=== PATIENT | female | born 1930 | race Caucasian/White ===

== ENCOUNTER 2017-03-30 11:45 | Inpatient (IN) | payer MEDICARE, BC ==
[2017-03-30 12:36] LABS: ABS Basophils 0 10^3/ul (0-0.2); ABS Eosinophils 0.1 10^3/ul (0-0.6); ABS Lymphocytes 1.8 10^3/ul (1.0-4.8); ABS Monocytes 0.5 10^3/ul (0-0.8); ABS Neutrophils 4.1 10^3/ul (1.5-7.7); ABS Nucleated RBC 0 10^3/ul; Eosinophil % 1.1 % (0-6); Hematocrit 36 % (35-47); Hemoglobin 11.9 g/dl (12.0-16.0); Lymphocyte % 27.8 % (25-47); Mean Corpuscular HGB Conc 33 g/dl (31-36); Mean Corpuscular Hemoglobin 30 pg (27-31); Mean Corpuscular Volume 91 fL (80-97); Mean Platelet Volume 9 um3 (7.4-10.4); Nucleated Red Blood Cells % 0; Platelet Count 144 10^3/ul (150-450); Red Blood Count 3.99 10^6/ul (4.0-5.4); Red Cell Distribution Width 16 % (10.5-15); White Blood Count 6.5 10^3/ul (3.5-10.8)
--- NOTE | 2017-03-30 12:50 | RAD ---
HISTORY: Chest pain, weakness COMPARISONS: December 03, 2016 VIEWS: 1: frontal portable view of the chest at 12:35 PM FINDINGS: LINES AND TUBES: None. CARDIOMEDIASTINAL SILHOUETTE: The cardiomediastinal silhouette is normal for portable technique. PLEURA: The costophrenic angles are sharp. No pleural abnormalities are noted. LUNG PARENCHYMA: The lungs are clear. ABDOMEN: The upper abdomen is clear. There is no subphrenic gas. BONES AND SOFT TISSUES: No bone or soft tissue abnormalities are noted. IMPRESSION: NO ACTIVE CARDIOPULMONARY DISEASE.
[2017-03-30 12:51] LABS: INR 3.16 (0.77-1.02)
[2017-03-30 12:54] LABS: EGFR Non-African American 61.4 (>60)
--- NOTE | 2017-03-30 13:30 | ED ---
Armando Rosales Tecjoon, scribed for Maxi Kenny MD on 03/30/17 at 1209 . Complex/Multi-Sys Presentation - HPI Summary HPI Summary: This patient is a 86 year old female BIBA to [facility] with a concerns of general weakness since earlier this morning. EMS states that the patient has a very slow heartrate (30s). Patient was sent by [facility]. Patient states that she doesnt know why shes here and that she wants to go home. Patient denies SOB, chest pain, chest pressure. HPI Limited due to Level 5 Caveat: Dementia - History Of Current Complaint Chief Complaint: EDDysrhythmPalp Time Seen by Provider: 03/30/17 11:56 Hx Obtained From: Patient Hx From Patient Unobtainable Due To: Dementia Onset/Duration: Lasting Hours, Still Present Timing: Constant Aggravating Factor(s): nothing Alleviating Factor(s): nothing Associated Signs And Symptoms: Positive: Other - NEGATIVE:SOB, chest pain, chest pressure - Allergies/Home Medications Allergies/Adverse Reactions: Allergies Allergy/AdvReac Type Severity Reaction Status Date / Time Chocolate Allergy Unknown Unknown Verified 07/19/15 03:20 Reaction Details Clarithromycin [From Biaxin] Allergy Unknown Unknown Verified 07/19/15 03:20 Reaction Details Levofloxacin [From Levaquin] Allergy Unknown Unknown Verified 07/19/15 03:20 Reaction Details Nabumetone Allergy Unknown Unknown Verified 07/19/15 03:20 Reaction Details Penicillins [PCN] Allergy Unknown Unknown Verified 07/19/15 03:20 Reaction Details Rofecoxib Allergy Unknown Unknown Verified 07/19/15 03:20 Reaction Details Shellfish Allergy Allergy Unknown Unknown Verified 07/19/15 03:20 Reaction Details Clindamycin AdvReac Unknown Unknown Verified 07/19/15 03:20 Reaction Details Home Medications: Home Medications Ergocalciferol [Ergocal] 5,000 unit PO WEEKLY 03/30/17 [History Confirmed ] Levothyroxine TAB* [Synthroid TAB*] 50 mcg PO QAM 03/30/17 [History Confirmed ] Magnesium Hydroxide LIQ* [Milk of Magnesia LIQ*] 30 ml PO BEDTIME PRN 03/30/17 [ History Confirmed 03/30/17] Potassium Chlor TAB* [Klor Con ER TAB*] 20 meq PO TID 03/30/17 [History Confirmed 03/30/17] PMH/Surg Hx/FS Hx/Imm Hx Previously Healthy: No - PMHx limited due to Level 5 Caveat: Dementia Endocrine/Hematology History: Reports: Hx Anticoagulant Therapy Denies: Hx Diabetes, Hx Thyroid Disease Cardiovascular History: Reports: Hx Atrial Fibrillation, Hx Coronary Artery Disease, Hx Hypercholesterolemia, Hx Hypertension, Other Cardiovascular Problems /Disorders - AFIB Denies: Hx Pacemaker/ICD Respiratory History: Reports: Hx Asthma, Hx Chronic Obstructive Pulmonary Disease (COPD), Hx Seasonal Allergies, Hx Sleep Apnea History: Denies: Hx Renal Disease Musculoskeletal History: Reports: Hx Arthritis, Other Musculoskeletal History - morbid obesity Sensory History: Reports: Hx Contacts or Glasses, Hx Macular Degeneration, Hx Hearing Problem Opthamlomology History: Reports: Hx Contacts or Glasses, Hx Macular Degeneration Neurological History: Reports: Hx Dementia Denies: Hx Seizures Comment Only: Other Neuro Impairments/Disorders - short term memory loss Psychiatric History: Reports: Hx Anxiety Denies: Hx Substance Abuse - Surgical History Surgery Procedure, Year, and Place: right total knee. hysterectomy Infectious Disease History: No Infectious Disease History: Denies: Hx Hepatitis, Hx Human Immunodeficiency Virus (HIV), History Other Infectious Disease, Traveled Outside the [place] in Last 30 Days - Family History Family History: R & n/C. FHx limited due to Level 5 Caveat: Dementia - Social History Alcohol Use: None Hx Substance Use: No Substance Use Type: Reports: None Hx Tobacco Use: No Smoking Status (MU): Never Smoked Tobacco Review of Systems Negative: Fever Cardiovascular: Negative - chest pressure Negative: Chest Pain Negative: Shortness Of Breath Positive: Weakness All Other Systems Reviewed And Are Negative: No - Comments Additional Review of Systems Comments: ROS limited due to Level 5 Caveat: Dementia Physical Exam Triage Information Reviewed: Yes Vital Signs On Initial Exam: Initial Vitals Temp Pulse Resp BP Pulse Ox 97.1 F 31 18 165/45 97 03/30/17 11:50 03/30/17 11:50 03/30/17 11:50 03/30/17 11:50 03/30/17 11:50 Vital Signs Reviewed: Yes Appearance: Positive: Well-Appearing, No Pain Distress Skin: Positive: Warm, Skin Color Reflects Adequate Perfusion Eyes: Positive: EOMI ENT: Positive: Pharynx normal Neck: Positive: Supple Respiratory/Lung Sounds: Positive: Clear to Auscultation, Breath Sounds Present Cardiovascular: Positive: RRR. Negative: Murmur Abdomen Description: Positive: Nontender Neurological: Positive: Sensory/Motor Intact, CN Intact II-III. Negative: Alert , Oriented to Person Place, Time - to person only Psychiatric: Positive: Other - demented - [place] Coma Scale Best Eye Response: 4 - Spontaneous Best Motor Response: 6 - Obeys Commands Best Verbal Response: 4 - Confused - baseline Diagnostics - Vital Signs Vital Signs Temp Pulse Resp BP Pulse Ox 03/30/17 11:50 97.1 F 31 18 165/45 97 - Laboratory Result Diagrams: 03/30/17 12:20 03/30/17 12:20 Lab Statement: Any lab studies that have been ordered have been reviewed, and results considered in the medical decision making process. - Radiology CXR Xray Interpretation: No Acute Changes - IMPRESSION: NO ACTIVE CARDIOPULMONARY DISEASE. ED physician has reviewed this radiology report. Radiology Interpretation Completed By: Radiologist Complex Multi-Symp Course/Dx Course Of Treatment: 86 yr old with generalized weakness, and bradycardia. Dig level is OK. Admit to hospitalists. hold cardizem likely course at this point. - Diagnoses Provider Diagnoses: Sinus bradycardia, Weakness - Critical Care Time Critical Care Time: 30-74 min Discharge - Discharge Plan Condition: Good Disposition: ADMITTED TO [facility] Referrals: Chele Rowan MD [Primary Care Provider] - The documentation as recorded by the Armando santoyo Tecjoon accurately reflects the service I personally performed and the decisions made by , Maxi Kenny MD.
[2017-03-30] MEDS ORDERED: Magnesium Hydroxide LIQ* 30 ML UDC PO PRN (14:50)
[2017-03-30] MEDS ORDERED: Acetaminophen TAB* 325 MG PO PRN (14:50)
[2017-03-30] MEDS ORDERED: Warfarin TAB(*) 3 MG PO SCH (17:00)
[2017-03-30 17:02] LABS: Urine Appearance Clear; Urine Blood Negative (Negative); Urine Color Yellow; Urine Ketones Negative (Negative); Urine Protein Negative (Negative); Urine Specific Gravity 1.015 (1.010-1.030); Urine Urobilinogen Negative (Negative)
--- NOTE | 2017-03-30 19:36 | HP ---
CC: Dr. García; Dr. Rowan * HISTORY AND PHYSICAL: DATE OF ADMISSION: 03/30/17 PRIMARY CARE PROVIDER: Chele Rowan MD [address] LANDSCAPE ARCHITECT: Dr. García. CHIEF COMPLAINT: The patient has no complaints. HISTORY OF PRESENT ILLNESS: Marilou Rincon is an 86-year-old female who was brought in from [facility] with apparently complaints of not feeling well. The patient herself stated that she feels well and she wants to go home. She was noted to have heart rate in the 30s. She has history paroxysmal atrial fibrillation and she had been kept in sinus rhythm with the help of amiodarone, digoxin and Cardizem. According to the medical records, her last cardioversion was in the year of 2014. According to the medical records from Dr. García's office, the patient was seen by Dr. García's physician geriatric assistant, Dawna De Guzman, in November 2016, at which point she was noted to have new left bundle branch block, but the family was not interested in further evaluation. The patient currently has [id number] dementia. She is very confused and disoriented and asks about her who her many years ago. After discussion with the patient's son and healthcare proxy, Jigar, they requested for the patient to be placed on overnight observation and to further monitor the patient's heart rate. That is despite the patient's MOLST form that was to be "comfort care." PAST MEDICAL HISTORY: 1. History of obstructive sleep apnea. 2. History of paroxysmal atrial fibrillation. 3. Last cardioversion in 2014. 4. Obesity. 5. Hypertension. 6. Asthma. 7. Dyslipidemia. 8. Dementia. 9. History of left bundle-branch block on EKG noted in November 2016. MEDICATIONS: Include: 1. Amiodarone 100 mg daily. 2. Klor-Con 20 mEq 3 times a day. 3. Mag ox 400 mg daily. 4. Diltiazem ER 240 mg daily. 5. Multivitamin 1 tablet daily. 6. Coumadin 4 mg on Sundays, Tuesdays, , and Saturdays; and 3 mg on Mondays, Wednesdays, and Fridays. 7. Aricept 10 mg at bedtime. 8. BuSpar 50 mg b.i.d. 9. Lactobacillus 1 tablet b.i.d. 10. Colace 100 mg daily. 11. Digoxin 0.125 mg daily. 12. Omeprazole 20 mg daily. 13. Namenda 10 mg daily. 14. Hydrochlorothiazide 12.5 mg daily. 15. Levothyroxine 50 mcg daily. ALLERGIES: Include CHOCOLATE, CLARITHROMYCIN, LEVOFLOXACIN, NABUMETONE, SHELLFISH, ROFECOXIB, PENICILLIN, CLINDAMYCIN. The patient could not confirm the reaction to the medications. FAMILY HISTORY: Unobtainable from the patient with severe dementia. SOCIAL HISTORY: Once again, the patient is not a reliable historian. From past medical records, the patient has no history of tobacco, alcohol or drug use. She lives in assisted living facility which is [facility] [place]. Her healthcare proxy is her son, Jigar. The patient had been for many years now. REVIEW OF SYSTEMS: The patient stated that she feels "well." She requests to go home. She denies any chest pain or shortness of breath. She denies any pain. All the remaining 12 systems were reviewed with the patient with significant dementia, she is not a reliable historian and were otherwise negative. PHYSICAL EXAMINATION GENERAL: The patient is a very pleasant 86-year-old female, who is oriented to her name and date of , disoriented to time and location. The patient is in no acute distress. VITAL SIGNS: Blood pressure of 136/111, heart rate of 75 and regular, respiratory rate 12, oxygen saturation 95% on room air, temperature of 97.1. HEENT: Head: Atraumatic and normocephalic. Eyes: Pupils are equal and reactive to light and accommodation. Oropharynx clear. Mucosa moist. NECK: Supple. No JVD. No bruits bilaterally. RESPIRATORY: Clear to auscultation bilaterally. CARDIOVASCULAR: Regular rate and rhythm. Bradycardia. No murmur. ABDOMEN: Soft, nontender. Bowel sounds present in all 4 quadrants. EXTREMITIES: There is +1 nonpitting pedal edema bilaterally. Pulses +2 bilaterally. There is no clubbing or cyanosis. NEURO: Speech clear. Cranial nerves II through XII grossly intact. Motor strength is 5/5 bilaterally. LABORATORY DATA: Shows digoxin level of 0.9. White blood cell count of 6.5, hemoglobin 11.9, hematocrit 36, and platelets of 144,000. Sodium was 135, potassium was 4.7, chloride 103, carbon dioxide 26, BUN 19, creatinine 0.87. Liver function tests were unremarkable. TSH was 3.04. Troponin of 0. IMAGING: The patient's EKG showed sinus bradycardia with heart rate of 31 beats per minute, right bundle-branch block. The patient's portable chest x-ray was read by the radiologist as "no active cardiopulmonary disease. No infiltration." ASSESSMENT AND PLAN: 1. In regards to the patient's sinus bradycardia. The patient is on multiple rate controlling agents. I discussed the case with Dr. García ,we decided that we are going to continue the patient's amiodarone since the patient has a history of symptomatic atrial fibrillation and cardioversion for it. We will discontinue her Cardizem and digoxin. The patient is going to be placed on telemetry monitored bed. I will follow up troponin in the morning. Her lytes appear to be fine today and her TSH is also not abnormal. So far, apart from this, the patient is on rate controlling agents. There are no other factors that could precipitate the patient's bradycardia that were noted. 2. For the patient's advanced dementia, Aricept and Namenda is going to be continued. 3. For the patient's history of paroxysmal atrial fibrillation, the patient is going to be continued with Coumadin with an INR of 3 today, which is going to be continued. INR is going to be checked in the morning. 4. The patient's code status is do not resuscitate, do not intubate and comfort measures only, but also to be okay to send to the hospital. The patient 's son, Jigar, requests for the MOLST wishes to be continued, but he also requests for the patient to be monitored in the hospital while her medications are adjusted. TIME SPENT: Approximately 70 minutes was spent on admission of this patient, more than half that time was spent [id number] with the patient during the interview and physical exam and management of the patient's case. [id number]/[facility] #: [id number] MTDD
[2017-03-30] MEDS: busPIRone TAB* 15 MG PO SCH (20:07)
[2017-03-30] MEDS: Donepezil TAB* 5 MG PO SCH (20:12)
[2017-03-31] MEDS: Levothyroxine TAB* 50 MCG TAB PO SCH (04:29)
[2017-03-31 05:56] LABS: INR 3.2 (0.77-1.02)
[2017-03-31] MEDS: busPIRone TAB* 15 MG PO SCH ×2 (08:35→22:10)
[2017-03-31] MEDS: Omeprazole CAP* 20 MG PO SCH (08:36)
[2017-03-31] MEDS: Docusate CAP* 100 MG PO SCH (08:36)
[2017-03-31] MEDS: Hydrochlorothiazide TAB* 25 MG PO SCH (08:37)
[2017-03-31] MEDS: Magnesium Oxide TAB* 400 MG PO SCH (08:37)
[2017-03-31] MEDS: Memantine TAB* 10 MG PO SCH (08:37)
[2017-03-31] MEDS ORDERED: Amiodarone TAB* 200 MG PO SCH (09:00)
--- NOTE | 2017-03-31 12:51 | PN ---
Subjective Date of Service: 03/31/17 Interval History: Pt is pleasantly confused, no complaints Objective Active Medications: Acetaminophen (Tylenol Tab*) 650 mg PO Q4H PRN PRN Reason: PAIN Buspirone HCl (Buspar Tab *) 15 mg PO BID [facility] Last Admin: 03/31/17 08:35 Dose: 15 mg Docusate Sodium (Colace Cap*) 100 mg PO DAILY [facility] Last Admin: 03/31/17 08:36 Dose: 100 mg Donepezil HCl (Aricept Tab*) 10 mg PO BEDTIME [facility] Last Admin: 03/30/17 20:12 Dose: 10 mg Hydrochlorothiazide (Hydrodiuril Tab*) 12.5 mg PO DAILY [facility] Last Admin: 03/31/17 08:37 Dose: 12.5 mg Levothyroxine Sodium (Synthroid Tab*) 50 mcg PO DAILY@0600 [facility] Last Admin: 03/31/17 04:29 Dose: 50 mcg Magnesium Hydroxide (Milk Of Magnesia Liq*) 30 ml PO BEDTIME PRN PRN Reason: CONSTIPATION Magnesium Oxide (Magox 400 Tab*) 400 mg PO DAILY [facility] Last Admin: 03/31/17 08:37 Dose: 400 mg Memantine (Namenda Tab*) 10 mg PO DAILY [facility] Last Admin: 03/31/17 08:37 Dose: 10 mg Omeprazole (Prilosec Cap*) 20 mg PO DAILY [facility] Last Admin: 03/31/17 08:36 Dose: 20 mg Vital Signs - 8 hr 03/31/17 11:58 Temperature 97.7 F Pulse Rate 33 Respiratory 14 Rate Blood Pressure 127/37 (mmHg) O2 Sat by Pulse 99 Oximetry Oxygen Devices in Use Now: None Appearance: 86 yo f oriented to self only, in nAD, keeps on trying to undress herself and then puts her shirt back on Eyes: No Scleral Icterus, PERRLA Ears/Nose/Mouth/Throat: NL Teeth, Lips, Gums, Mucous Membranes Moist Neck: NL Appearance and Movements; NL JVP, Trachea Midline Respiratory: Symmetrical Chest Expansion and Respiratory Effort Cardiovascular: NL Sounds; No Murmurs; No JVD, - - bradycardia Lymphatic: No Cervical Adenopathy Extremities: No Clubbing, Cyanosis, - - +1 nonpitting pedal edema Skin: No Rash or Ulcers, No Nodules or Sclerosis Neurological: NL Muscle Strength and Tone Result Diagrams: 03/30/17 12:20 03/30/17 12:20 Assess/Plan/Problems-Billing Assessment: 86 yo F with h/o A. fib and dementia sent in from assisted living facility with HR of 30, pt appears to be asymptomatic - Patient Problems (1) Bradycardia Comment: Pt appears to be in a complete heart block. asymptomatic. Amiodarone/digoxin and Cardizem stopped, cont to monitor on telem (2) Dementia Comment: cont namenda/Aricept (3) HTN (hypertension) Comment: controlled, cont HCTZ (4) DVT prophylaxis Comment: INR therapeutic, coumadin held in case pt needed to be considered for a procedure. (5) Hypothyroidism Comment: cont current synthroid, TSH 3.04 Status and Disposition: OBV changed to inpatient
[2017-03-31] MEDS: LORazepam TAB(*) 0.5 MG PO PRN (15:16)
[2017-03-31] MEDS ORDERED: Warfarin TAB(*) 4 MG PO SCH (17:00)
[2017-03-31] MEDS: Donepezil TAB* 5 MG PO SCH (22:10)
[2017-04-01] MEDS: Levothyroxine TAB* 50 MCG TAB PO SCH (06:00)
[2017-04-01] MEDS: Magnesium Oxide TAB* 400 MG PO SCH (08:36)
[2017-04-01] MEDS: Docusate CAP* 100 MG PO SCH (08:36)
[2017-04-01] MEDS: Hydrochlorothiazide TAB* 25 MG PO SCH (08:36)
[2017-04-01] MEDS: Omeprazole CAP* 20 MG PO SCH (08:36)
[2017-04-01] MEDS: Memantine TAB* 10 MG PO SCH (08:36)
[2017-04-01] MEDS: busPIRone TAB* 15 MG PO SCH ×2 (09:10→21:28)
--- NOTE | 2017-04-01 14:51 | PN ---
Subjective Date of Service: 04/01/17 Interval History: Pt feels fine and excited to go home probably tomorrow. HR still in 30's Objective Active Medications: Acetaminophen (Tylenol Tab*) 650 mg PO Q4H PRN PRN Reason: PAIN Buspirone HCl (Buspar Tab *) 15 mg PO BID [facility] Last Admin: 04/01/17 09:10 Dose: 15 mg Docusate Sodium (Colace Cap*) 100 mg PO DAILY [facility] Last Admin: 04/01/17 08:36 Dose: 100 mg Donepezil HCl (Aricept Tab*) 10 mg PO BEDTIME [facility] Last Admin: 03/31/17 22:10 Dose: 10 mg Hydrochlorothiazide (Hydrodiuril Tab*) 12.5 mg PO DAILY [facility] Last Admin: 04/01/17 08:36 Dose: 12.5 mg Levothyroxine Sodium (Synthroid Tab*) 50 mcg PO DAILY@0600 [facility] Last Admin: 04/01/17 06:00 Dose: 50 mcg Lorazepam (Ativan Tab(*)) 0.5 mg PO Q6H PRN PRN Reason: ANXIETY Last Admin: 03/31/17 15:16 Dose: 0.5 mg Magnesium Hydroxide (Milk Of Magnesia Liq*) 30 ml PO BEDTIME PRN PRN Reason: CONSTIPATION Magnesium Oxide (Magox 400 Tab*) 400 mg PO DAILY [facility] Last Admin: 04/01/17 08:36 Dose: 400 mg Memantine (Namenda Tab*) 10 mg PO DAILY [facility] Last Admin: 04/01/17 08:36 Dose: 10 mg Omeprazole (Prilosec Cap*) 20 mg PO DAILY [facility] Last Admin: 04/01/17 08:36 Dose: 20 mg Vital Signs - 8 hr 04/01/17 04/01/17 04/01/17 08:00 08:06 11:31 Temperature 97.3 F 97.9 F Pulse Rate 30 31 Respiratory 16 16 16 Rate Blood Pressure 135/40 130/41 (mmHg) O2 Sat by Pulse 95 95 Oximetry Oxygen Devices in Use Now: None Appearance: 86 yo f in nAD, pleasantly confused, oriented to self only Eyes: No Scleral Icterus, PERRLA Ears/Nose/Mouth/Throat: NL Teeth, Lips, Gums, Mucous Membranes Moist Neck: NL Appearance and Movements; NL JVP, Trachea Midline Respiratory: Symmetrical Chest Expansion and Respiratory Effort, Clear to Auscultation Cardiovascular: NL Sounds; No Murmurs; No JVD, RRR, - - brian Abdominal: NL Sounds; No Tenderness; No Distention Lymphatic: No Cervical Adenopathy Extremities: No Clubbing, Cyanosis, - - +1 nonpitting pedal edema b/l Skin: No Rash or Ulcers, No Nodules or Sclerosis Neurological: NL Muscle Strength and Tone Result Diagrams: 03/30/17 12:20 03/30/17 12:20 Assess/Plan/Problems-Billing Assessment: 86 yo F with h/o A. fib and dementia sent in from assisted living facility with HR of 30, pt appears to be asymptomatic - Patient Problems (1) Bradycardia Comment: Pt appears to be in a complete heart block. asymptomatic. Amiodarone/digoxin and Cardizem stopped at admission. Bradycardia persists. D/w son Jigar possible pacer, although pt is asymptomatic-family not interested in a pacemaker (2) Dementia Comment: cont namenda/Aricept (3) HTN (hypertension) Comment: controlled, cont HCTZ (4) DVT prophylaxis Comment: INR therapeutic (5) Hypothyroidism Comment: cont current synthroid, TSH 3.04 Status and Disposition: OBV changed to inpatient
[2017-04-01] MEDS ORDERED: Warfarin TAB(*) 3 MG PO SCH (17:00)
[2017-04-01] MEDS: Donepezil TAB* 5 MG PO SCH (21:28)
[2017-04-02] MEDS: Levothyroxine TAB* 50 MCG TAB PO SCH (05:39)
[2017-04-02] MEDS: Memantine TAB* 10 MG PO SCH (09:41)
[2017-04-02] MEDS: Docusate CAP* 100 MG PO SCH (09:41)
[2017-04-02] MEDS: busPIRone TAB* 15 MG PO SCH ×2 (09:41→20:34)
[2017-04-02] MEDS: Magnesium Oxide TAB* 400 MG PO SCH (09:42)
[2017-04-02] MEDS: Hydrochlorothiazide TAB* 25 MG PO SCH (09:42)
--- NOTE | 2017-04-02 10:43 | PN ---
Subjective Date of Service: 04/02/17 Interval History: Pt has no complaints, pleasantly confused Objective Active Medications: Acetaminophen (Tylenol Tab*) 650 mg PO Q4H PRN PRN Reason: PAIN Buspirone HCl (Buspar Tab *) 15 mg PO BID [facility] Last Admin: 04/02/17 09:41 Dose: 15 mg Docusate Sodium (Colace Cap*) 100 mg PO DAILY [facility] Last Admin: 04/02/17 09:41 Dose: 100 mg Donepezil HCl (Aricept Tab*) 10 mg PO BEDTIME [facility] Last Admin: 04/01/17 21:28 Dose: 10 mg Hydrochlorothiazide (Hydrodiuril Tab*) 12.5 mg PO DAILY [facility] Last Admin: 04/02/17 09:42 Dose: 12.5 mg Levothyroxine Sodium (Synthroid Tab*) 50 mcg PO DAILY@0600 [facility] Last Admin: 04/02/17 05:39 Dose: 50 mcg Lorazepam (Ativan Tab(*)) 0.5 mg PO Q6H PRN PRN Reason: ANXIETY Last Admin: 03/31/17 15:16 Dose: 0.5 mg Magnesium Hydroxide (Milk Of Magnesia Liq*) 30 ml PO BEDTIME PRN PRN Reason: CONSTIPATION Magnesium Oxide (Magox 400 Tab*) 400 mg PO DAILY [facility] Last Admin: 04/02/17 09:42 Dose: 400 mg Memantine (Namenda Tab*) 10 mg PO DAILY [facility] Last Admin: 04/02/17 09:41 Dose: 10 mg Omeprazole (Prilosec Cap*) 20 mg PO DAILY [facility] Last Admin: 04/01/17 08:36 Dose: 20 mg Pharmacy Profile Note (Coumadin Daily Reminder*) 1 note FOLLOW UP 1700 [facility] Last Admin: 04/01/17 17:30 Dose: Not Given Vital Signs - 8 hr 04/02/17 05:07 Temperature 97.8 F Pulse Rate 33 Respiratory 16 Rate Blood Pressure 129/34 (mmHg) O2 Sat by Pulse 95 Oximetry Oxygen Devices in Use Now: None Appearance: 86 yo F, oriented to self only Eyes: No Scleral Icterus, PERRLA Ears/Nose/Mouth/Throat: NL Teeth, Lips, Gums, Mucous Membranes Moist Neck: NL Appearance and Movements; NL JVP, Trachea Midline Respiratory: Symmetrical Chest Expansion and Respiratory Effort Cardiovascular: NL Sounds; No Murmurs; No JVD, - - brian Abdominal: NL Sounds; No Tenderness; No Distention, No Hepatosplenomegaly Lymphatic: No Cervical Adenopathy Extremities: No Clubbing, Cyanosis, - - +1 nonpitting edema b/l feet Skin: No Rash or Ulcers, No Nodules or Sclerosis Neurological: NL Muscle Strength and Tone Result Diagrams: 03/30/17 12:20 03/30/17 12:20 Assess/Plan/Problems-Billing Assessment: 86 yo F with h/o A. fib and dementia sent in from assisted living facility with HR of 30, pt appears to be asymptomatic - Patient Problems (1) Bradycardia Comment: Pt appears to be in a complete heart block. asymptomatic. Amiodarone/digoxin and Cardizem stopped at admission. Bradycardia persists. D/w son Jigar possible pacer, although pt is asymptomatic. Family discussing passible pacer. Appreciate Dr. Luther's consult (2) Dementia Comment: cont namenda/Aricept (3) HTN (hypertension) Comment: controlled, cont HCTZ (4) DVT prophylaxis Comment: INR pending (5) Hypothyroidism Comment: cont current synthroid, TSH 3.04 Status and Disposition: inpatient
[2017-04-02] MEDS: Omeprazole CAP* 20 MG PO SCH (11:44)
[2017-04-02 13:59] LABS: INR 1.79 (0.77-1.02)
--- NOTE | 2017-04-02 15:57 | CONS ---
CC: Dr. García. CARDIOLOGY CONSULTATION: DATE OF CONSULT: 04/02/17. INDICATION FOR CONSULTATION: Atrial fibrillation and bradycardia. HISTORY OF PRESENT ILLNESS: The patient is an 86-year-old female with a history of paroxysmal atrial fibrillation, [id number] pulmonary hypertension who was admitted to the hospital because of feeling poorly. Patient was noted to have a heart rate of 30 at the [facility]. On arri bienvenido, the patient was on amiodarone, digoxin and Cardizem, all of those were stopped. This was on 06/12 and it is now 04/02/17. Patient's heart rate today is 38 beats per minute. I was asked to con sult the patient for a possible pacemaker implantation. Patient has a history of paroxysmal atrial fibrillation. She is followed by Dr. García. Her echo cardiogram in 2014 showed low normal LV systolic function, ejection fraction of 50% to 55%. She had moderate mitral regurgitation. She had [id number] tricuspid regurgitation with moderate pulm onary hypertension. Patient does have a history of significant dementia and is in care. I did interview the patient with her son in the room. PAST MEDICAL HISTORY: Significant for obstructive sleep apnea, paroxysmal atrial fibrillation, obesi ty, hypertension, hyperlipidemia, severe dementia. OUTPATIENT MEDICATIONS: 1. Amiodarone 100 mg a day. 2. Potassium 20 mEq a day. 3. Diltiazem ER 240 mg a day. 4. Coumadin as directed. 5. Aricept 10 mg a day. 6. BuSpar 50 mg b.i.d. 7. Colace 100 mg a day. 8. Digoxin 0.125 mg a day. 9. Omeprazole 20 mg a day. 10. Namenda 10 mg a day. 11. Hydrochlorothiazide 12.5 mg a day. 12. Levothyroxine 50 mcg a day. Again, patient has been stopped off of her diltiazem, digoxin and amiodarone as of 03/30/17. ALLERGIES: The patient is intolerant of CLARITHROMYCIN and LEVOFLOXACIN, PENICILLIN, CLINDA. FAMILY HISTORY: Unable to be obtained as the patient has severe dementia. SOCIAL HISTORY: Patient resides at [place]. She has been for many years. There is no his tory of tobacco or alcohol use. PHYSICAL EXAM: Height is 5 feet 6 inches, weight is 198 pounds, temperature 97.6, heart rate is 37, blood pressure 136/35, oxygen saturation 95% on room air. Sclerae anicteric. Oropharynx is pink with out erythema. Carotids are 2+ without bruits. JVD is normal. Thyroid is normal. Cardiac Exam: S1 , S2 with a 1/6 systolic ejection murmur heard best at the right mid sternal border. PMI is normal. There is a slight RV heave in the subxiphoid area. Lungs are clear to auscultation bilaterally. Th ere is no dullness to percussion. Abdomen is soft, nontender, nondistended with normoactive bowel so unds. Extremities show no edema. She has 2+ pulses throughout. Patient is awake and alert but unabl e to give any other information. LABORATORY DATA: CBC within normal limits. Chemistries within normal limits. TSH 3.04. INR 2 days ago was 3.2. IMPRESSION: This is an 86-year-old female with severe dementia, history of paroxysmal atrial fibrill ation, who comes in today with severe bradycardia. Patient has been off of her diltiazem, digoxin and amiodarone since 03/30/17. Patient remains bradycardic. Patient has no symptoms associated with thi s. Patient has severe dementia. I had a discussion with her son regarding her treatment. I told him that the amiodarone could be affecting her heart rate for up to 2 weeks. Patient is unable to make any decisions. The decision at this point is to have a family conference with the other siblings and make decisions as to whether they want permanent pacemaker implantation. I did talk to him about th e difficulties doing pacemakers in severely demented patient and their inability to cooperate either during the procedure or with the postoperative care. Other risks and benefits were described in gre at detail. Further recommendations to be pending. [id number]/[facility] #: [id number]
[2017-04-02] MEDS: Donepezil TAB* 5 MG PO SCH (20:35)
[2017-04-03] MEDS: Levothyroxine TAB* 50 MCG TAB PO SCH (04:51)
[2017-04-03 07:12] LABS: INR 1.61 (0.77-1.02)
[2017-04-03] MEDS: busPIRone TAB* 15 MG PO SCH ×2 (09:11→20:01)
[2017-04-03] MEDS: Hydrochlorothiazide TAB* 25 MG PO SCH (09:11)
[2017-04-03] MEDS: Omeprazole CAP* 20 MG PO SCH (09:12)
[2017-04-03] MEDS: Memantine TAB* 10 MG PO SCH (09:12)
[2017-04-03] MEDS: Magnesium Oxide TAB* 400 MG PO SCH (09:12)
[2017-04-03] MEDS: Docusate CAP* 100 MG PO SCH (09:13)
[2017-04-03] MEDS ORDERED: Diazepam TAB(*) 5 MG PO ONE (10:40)
--- NOTE | 2017-04-03 11:08 | PN ---
Subjective Date of Service: 04/03/17 Interval History: p has no complaints, wants to go home Objective Active Medications: Acetaminophen (Tylenol Tab*) 650 mg PO Q4H PRN PRN Reason: PAIN Buspirone HCl (Buspar Tab *) 15 mg PO BID [facility] Last Admin: 04/03/17 09:11 Dose: 15 mg Docusate Sodium (Colace Cap*) 100 mg PO DAILY [facility] Last Admin: 04/03/17 09:13 Dose: Not Given Donepezil HCl (Aricept Tab*) 10 mg PO BEDTIME [facility] Last Admin: 04/02/17 20:35 Dose: 10 mg Hydrochlorothiazide (Hydrodiuril Tab*) 12.5 mg PO DAILY [facility] Last Admin: 04/03/17 09:11 Dose: 12.5 mg Sodium Chloride (Ns 0.9% 1000 Ml*) 1,000 mls @ 75 mls/hr IV PER RATE [facility] Vancomycin HCl 1,000 mg/ (Sodium Chloride) 250 mls @ 166.667 mls/hr IVPB ED ONCE ONE Stop: 04/04/17 08:33 Levothyroxine Sodium (Synthroid Tab*) 50 mcg PO DAILY@0600 [facility] Last Admin: 04/03/17 04:51 Dose: 50 mcg Lorazepam (Ativan Tab(*)) 0.5 mg PO Q6H PRN PRN Reason: ANXIETY Last Admin: 03/31/17 15:16 Dose: 0.5 mg Magnesium Hydroxide (Milk Of Magnesia Liq*) 30 ml PO BEDTIME PRN PRN Reason: CONSTIPATION Magnesium Oxide (Magox 400 Tab*) 400 mg PO DAILY [facility] Last Admin: 04/03/17 09:12 Dose: 400 mg Memantine (Namenda Tab*) 10 mg PO DAILY [facility] Last Admin: 04/03/17 09:12 Dose: 10 mg Omeprazole (Prilosec Cap*) 20 mg PO DAILY [facility] Last Admin: 04/03/17 09:12 Dose: 20 mg Pharmacy Profile Note (Coumadin Daily Reminder*) 1 note FOLLOW UP 1700 [facility] Last Admin: 04/02/17 18:24 Dose: 1 note Vital Signs - 8 hr 04/03/17 04/03/17 04:44 07:24 Temperature 98.2 F 97.8 F Pulse Rate 37 Respiratory 20 20 Rate Blood Pressure 130/39 129/39 (mmHg) O2 Sat by Pulse 96 97 Oximetry Oxygen Devices in Use Now: None Appearance: 86 yo f in nAD, oriented to self only Eyes: No Scleral Icterus, PERRLA Ears/Nose/Mouth/Throat: NL Teeth, Lips, Gums, Mucous Membranes Moist Neck: NL Appearance and Movements; NL JVP, Trachea Midline Respiratory: Symmetrical Chest Expansion and Respiratory Effort Cardiovascular: NL Sounds; No Murmurs; No JVD, - - brian Abdominal: NL Sounds; No Tenderness; No Distention, No Hepatosplenomegaly Lymphatic: No Axillary Adenopathy Extremities: No Clubbing, Cyanosis, - - trace pedal edema b/l Skin: No Rash or Ulcers, No Nodules or Sclerosis Neurological: NL Muscle Strength and Tone Result Diagrams: 03/30/17 12:20 03/30/17 12:20 Assess/Plan/Problems-Billing Assessment: 86 yo F with h/o A. fib and dementia sent in from assisted living facility with HR of 30, pt appears to be asymptomatic - Patient Problems (1) Bradycardia Comment: Pt appears to be in a complete heart block. asymptomatic. Amiodarone/digoxin and Cardizem stopped at admission. Bradycardia persists. Planned for pacemaker with Dr. Luther in AM (2) Dementia Comment: cont namenda/Aricept (3) HTN (hypertension) Comment: controlled, cont HCTZ (4) DVT prophylaxis Comment: INR needs to be <1.5 for pacer heparin sc will be started after pacer placement (5) Hypothyroidism Comment: cont current synthroid, TSH 3.04 Status and Disposition: inpatient
[2017-04-03] MEDS: Donepezil TAB* 5 MG PO SCH (20:01)
[2017-04-04] MEDS: Levothyroxine TAB* 50 MCG TAB PO SCH (05:30)
[2017-04-04 06:53] LABS: ABS Basophils 0 10^3/ul (0-0.2); ABS Eosinophils 0.1 10^3/ul (0-0.6); ABS Monocytes 0.5 10^3/ul (0-0.8); ABS Neutrophils 4.3 10^3/ul (1.5-7.7); ABS Nucleated RBC 0 10^3/ul; Eosinophil % 1.7 % (0-6); Hematocrit 33 % (35-47); Hemoglobin 10.9 g/dl (12.0-16.0); Mean Corpuscular HGB Conc 33 g/dl (31-36); Mean Corpuscular Hemoglobin 30 pg (27-31); Mean Corpuscular Volume 91 fL (80-97); Mean Platelet Volume 9 um3 (7.4-10.4); Nucleated Red Blood Cells % 0; Platelet Count 142 10^3/ul (150-450); Red Blood Count 3.66 10^6/ul (4.0-5.4); Red Cell Distribution Width 15 % (10.5-15)
[2017-04-04] MEDS ORDERED: Vancomycin(*) 1,000 MG in NS 0.9% 250 ML* 250 ML IVPB ONE (07:04)
[2017-04-04 07:06] LABS: INR 1.32 (0.77-1.02)
[2017-04-04 07:09] LABS: EGFR Non-African American 60.6 (>60)
[2017-04-04] MEDS: Omeprazole CAP* 20 MG PO SCH (10:22)
[2017-04-04] MEDS: Memantine TAB* 10 MG PO SCH (10:22)
[2017-04-04] MEDS: Magnesium Oxide TAB* 400 MG PO SCH (10:22)
[2017-04-04] MEDS: busPIRone TAB* 15 MG PO SCH ×2 (10:23→21:56)
[2017-04-04] MEDS: Docusate CAP* 100 MG PO SCH (10:23)
[2017-04-04] MEDS: Hydrochlorothiazide TAB* 25 MG PO SCH (10:23)
[2017-04-04] MEDS ORDERED: fentaNYL* 50 MCG/ML 2 ML VIAL (100 MCG VIAL) ONE (11:20)
[2017-04-04] MEDS ORDERED: Lidocaine 1% INJ* 10 MG/ML 30 ML SDV ONE (11:20)
[2017-04-04] MEDS ORDERED: Midazolam* 1 MG/ML 10 ML VIAL (10 MG) ONE (11:20)
[2017-04-04] MEDS: NS 0.9% 1000 ML* 1,000 ML IV SCH (14:25)
--- NOTE | 2017-04-04 15:37 | RAD ---
Indication: Post LEFT chest wall pacemaker placement. Comparison: March 30, 2017 Technique: Upright AP 1440 hours Report: Single lead of newly placed LEFT chest wall pacemaker extends to the level of the RIGHT ventricle. Negative for pneumothorax. Elevated lung volumes with mild prominence of interstitial markings without change. Negative for alveolar consolidation or presence of a suspicious focal pulmonary lesion. Negative for pleural effusion. Top normal heart size. Unremarkable central pulmonary vasculature. IMPRESSION: Negative for pneumothorax post single chamber cardiac pacemaker placement. Stigmata of chronic obstructive pulmonary disease consistent with clinical history.
--- NOTE | 2017-04-04 19:27 | PN ---
Subjective Date of Service: 04/04/17 Interval History: Pt is feeling well. She does c/o mild pain in her lateral L chest wall and L arm. Per nursing she has been frequently getting up to the bathroom. Objective Active Medications: Acetaminophen (Tylenol Tab*) 650 mg PO Q4H PRN PRN Reason: PAIN Buspirone HCl (Buspar Tab *) 15 mg PO BID [facility] Last Admin: 04/04/17 10:23 Dose: 15 mg Docusate Sodium (Colace Cap*) 100 mg PO DAILY [facility] Last Admin: 04/04/17 10:23 Dose: 100 mg Donepezil HCl (Aricept Tab*) 10 mg PO BEDTIME [facility] Last Admin: 04/03/17 20:01 Dose: 10 mg Heparin Sodium (Porcine) (Heparin Vial(*)) 5,000 units SUBCUT Q8HR [facility] Hydrochlorothiazide (Hydrodiuril Tab*) 12.5 mg PO DAILY [facility] Last Admin: 04/04/17 10:23 Dose: 12.5 mg Sodium Chloride (Ns 0.9% 1000 Ml*) 1,000 mls @ 75 mls/hr IV PER RATE [facility] Last Admin: 04/04/17 14:25 Dose: 75 mls/hr Levothyroxine Sodium (Synthroid Tab*) 50 mcg PO DAILY@0600 [facility] Last Admin: 04/04/17 05:30 Dose: 50 mcg Lorazepam (Ativan Tab(*)) 0.5 mg PO Q6H PRN PRN Reason: ANXIETY Last Admin: 03/31/17 15:16 Dose: 0.5 mg Magnesium Hydroxide (Milk Of Magnesia Liq*) 30 ml PO BEDTIME PRN PRN Reason: CONSTIPATION Magnesium Oxide (Magox 400 Tab*) 400 mg PO DAILY [facility] Last Admin: 04/04/17 10:22 Dose: 400 mg Memantine (Namenda Tab*) 10 mg PO DAILY [facility] Last Admin: 04/04/17 10:22 Dose: 10 mg Omeprazole (Prilosec Cap*) 20 mg PO DAILY [facility] Last Admin: 04/04/17 10:22 Dose: 20 mg Pharmacy Profile Note (Coumadin Daily Reminder*) 1 note FOLLOW UP 1700 [facility] Last Admin: 04/04/17 17:30 Dose: 1 note Vital Signs - 8 hr 04/04/17 04/04/17 04/04/17 13:00 13:01 13:05 Temperature 97.5 F Pulse Rate 63 62 Respiratory 16 Rate Blood Pressure 148/57 148/57 (mmHg) O2 Sat by Pulse 93 Oximetry 04/04/17 04/04/17 04/04/17 13:06 13:11 13:13 Temperature Pulse Rate Respiratory Rate Blood Pressure 131/57 131/62 140/61 (mmHg) O2 Sat by Pulse Oximetry 04/04/17 04/04/17 04/04/17 13:26 13:57 14:09 Temperature Pulse Rate Respiratory Rate Blood Pressure 134/61 155/55 (mmHg) O2 Sat by Pulse 98 Oximetry 04/04/17 04/04/17 04/04/17 14:12 14:42 14:56 Temperature Pulse Rate 60 Respiratory Rate Blood Pressure 160/61 149/56 142/57 (mmHg) O2 Sat by Pulse 98 Oximetry 04/04/17 04/04/17 04/04/17 15:00 15:01 15:09 Temperature Pulse Rate 60 60 Respiratory Rate Blood Pressure 153/57 (mmHg) O2 Sat by Pulse 89 92 89 Oximetry 04/04/17 04/04/17 04/04/17 15:12 16:05 16:10 Temperature Pulse Rate 63 Respiratory Rate Blood Pressure 163/75 (mmHg) O2 Sat by Pulse 92 93 93 Oximetry 04/04/17 16:59 Temperature Pulse Rate Respiratory Rate Blood Pressure 149/53 (mmHg) O2 Sat by Pulse Oximetry Oxygen Devices in Use Now: None Appearance: Elderly female sitting up in bed, NAD Eyes: No Scleral Icterus Ears/Nose/Mouth/Throat: Mucous Membranes Moist Respiratory: Symmetrical Chest Expansion and Respiratory Effort, Clear to Auscultation Cardiovascular: RRR, No Edema, - - III/ systolic murmur Abdominal: NL Sounds; No Tenderness; No Distention Extremities: No Clubbing, Cyanosis Skin: No Rash or Ulcers, No Nodules or Sclerosis Neurological: Alert and Oriented x 3 Result Diagrams: 04/04/17 06:27 04/04/17 06:27 Assess/Plan/Problems-Billing Ms Rincon is an 86 yo F with h/o A. fib and dementia sent in from assisted living facility with HR of 30 and now is s/p PPM insertion. - Patient Problems (1) Mobitz (type) II atrioventricular block Current Visit: Yes Status: Acute Code(s): I44.1 - ATRIOVENTRICULAR BLOCK, SECOND DEGREE SNOMED Code(s): 08603026 Comment: The patient is now s/p PPM insertion. She will likely need NH placement post discharge. (2) Hypothyroidism Current Visit: Yes Status: Acute Code(s): E03.9 - HYPOTHYROIDISM, UNSPECIFIED SNOMED Code(s): 21676727 Comment: Continue current dose of synthroid. (3) Dementia Current Visit: Yes Status: Chronic Code(s): F03.90 - UNSPECIFIED DEMENTIA WITHOUT BEHAVIORAL DISTURBANCE SNOMED Code(s): 41388013 Comment: Continue Namenda and Aricept (4) HTN (hypertension) Current Visit: Yes Status: Chronic Code(s): I10 - ESSENTIAL (PRIMARY) HYPERTENSION SNOMED Code(s): 37747956 Comment: BP moderately elevated today but had been in good control. Continue HCTZ. (5) DVT prophylaxis Current Visit: Yes Status: Acute Priority: Medium Onset Date: 04/02/14 Code(s): GFV6289 - SNOMED Code(s): 720452016 Comment: SQ heparin and resume coumadin (6) DNR (do not resuscitate) Current Visit: Yes Status: Acute Priority: Medium Onset Date: 04/02/14 Status and Disposition: .
[2017-04-04] MEDS: Donepezil TAB* 5 MG PO SCH (21:58)
[2017-04-04] MEDS: Heparin VIAL(*) 5000 UNITS/ML VIAL (FIVE THOUSAND) SUBCUT SCH (21:58)
[2017-04-05 06:01] LABS: Urine Appearance Cloudy; Urine Blood Negative (Negative); Urine Color Yellow; Urine Ketones Trace (Negative); Urine Protein 1+(30 mg/dL) (Negative); Urine Specific Gravity 1.018 (1.010-1.030); Urine Urobilinogen Negative (Negative)
[2017-04-05] MEDS: Levothyroxine TAB* 50 MCG TAB PO SCH (06:15)
[2017-04-05] MEDS: Heparin VIAL(*) 5000 UNITS/ML VIAL (FIVE THOUSAND) SUBCUT SCH ×3 (06:16→20:22)
[2017-04-05 06:24] LABS: INR 1.17 (0.77-1.02)
[2017-04-05] MEDS: Docusate CAP* 100 MG PO SCH (08:56)
[2017-04-05] MEDS: busPIRone TAB* 15 MG PO SCH ×2 (08:56→20:22)
[2017-04-05] MEDS: Memantine TAB* 10 MG PO SCH (08:56)
[2017-04-05] MEDS: Hydrochlorothiazide TAB* 25 MG PO SCH (08:56)
[2017-04-05] MEDS: Magnesium Oxide TAB* 400 MG PO SCH (08:56)
[2017-04-05] MEDS: Omeprazole CAP* 20 MG PO SCH (08:56)
--- NOTE | 2017-04-05 09:01 | RAD ---
INDICATION: Status post left upper chest cardiac pacemaker implantation. COMPARISON: Chest x-ray dated April 04, 2017 TECHNIQUE: PA and lateral views of the chest were obtained. FINDINGS: The left upper chest cardiac pacemaker with a single lead overlying the heart is unchanged from the previous days chest x-ray. The heart and mediastinum are normal in size and contour. The lungs are grossly clear. There is no visible pneumothorax. Visualized bones are normal for the patient's age. There is no radiographic evidence of free air beneath the diaphragm IMPRESSION: STABLE POSTOPERATIVE FINDINGS DESCRIBED ABOVE.
[2017-04-05] MEDS ORDERED: cefTRIAXone(*) 1 GM in D5W 50 ML BAG* 50 ML IVPB SCH (15:00)
--- NOTE | 2017-04-05 15:28 | PN ---
Subjective Date of Service: 04/05/17 Interval History: Pt is feeling well. She denies any pain. No SOB. Her son states she is doing a good job not lifting her L arm. Objective Active Medications: Acetaminophen (Tylenol Tab*) 650 mg PO Q4H PRN PRN Reason: PAIN Last Admin: 04/04/17 21:56 Dose: 650 mg Buspirone HCl (Buspar Tab *) 15 mg PO BID [facility] Last Admin: 04/05/17 08:56 Dose: 15 mg Docusate Sodium (Colace Cap*) 100 mg PO DAILY [facility] Last Admin: 04/05/17 08:56 Dose: 100 mg Donepezil HCl (Aricept Tab*) 10 mg PO BEDTIME [facility] Last Admin: 04/04/17 21:58 Dose: 10 mg Heparin Sodium (Porcine) (Heparin Vial(*)) 5,000 units SUBCUT Q8HR [facility] Last Admin: 04/05/17 13:26 Dose: 5,000 units Hydrochlorothiazide (Hydrodiuril Tab*) 12.5 mg PO DAILY [facility] Last Admin: 04/05/17 08:56 Dose: 12.5 mg Sodium Chloride (Ns 0.9% 1000 Ml*) 1,000 mls @ 75 mls/hr IV PER RATE [facility] Last Admin: 04/04/17 14:25 Dose: 75 mls/hr Ceftriaxone Sodium 1 gm/ (Dextrose) 50 mls @ 200 mls/hr IVPB Q24H [facility] Levothyroxine Sodium (Synthroid Tab*) 50 mcg PO DAILY@0600 [facility] Last Admin: 04/05/17 06:15 Dose: 50 mcg Lorazepam (Ativan Tab(*)) 0.5 mg PO Q6H PRN PRN Reason: ANXIETY Last Admin: 03/31/17 15:16 Dose: 0.5 mg Magnesium Hydroxide (Milk Of Magnesia Liq*) 30 ml PO BEDTIME PRN PRN Reason: CONSTIPATION Magnesium Oxide (Magox 400 Tab*) 400 mg PO DAILY [facility] Last Admin: 04/05/17 08:56 Dose: 400 mg Memantine (Namenda Tab*) 10 mg PO DAILY [facility] Last Admin: 04/05/17 08:56 Dose: 10 mg Omeprazole (Prilosec Cap*) 20 mg PO DAILY [facility] Last Admin: 04/05/17 08:56 Dose: 20 mg Pharmacy Profile Note (Coumadin Daily Reminder*) 1 note FOLLOW UP 1700 [facility] Last Admin: 04/04/17 17:30 Dose: 1 note Vital Signs - 8 hr 04/05/17 04/05/17 04/05/17 07:33 08:00 09:00 Temperature 98.2 F Pulse Rate 59 Respiratory 20 20 Rate Blood Pressure 130/55 (mmHg) O2 Sat by Pulse 94 94 Oximetry 04/05/17 04/05/17 11:07 13:00 Temperature 98.2 F Pulse Rate 59 Respiratory 20 Rate Blood Pressure 118/47 (mmHg) O2 Sat by Pulse 95 95 Oximetry Oxygen Devices in Use Now: None Appearance: Elderly female sitting up in a chair, NAD Eyes: No Scleral Icterus Ears/Nose/Mouth/Throat: Mucous Membranes Moist Respiratory: Symmetrical Chest Expansion and Respiratory Effort, Clear to Auscultation Cardiovascular: RRR, No Edema, - - III/ systolic murmur Abdominal: NL Sounds; No Tenderness; No Distention Extremities: No Clubbing, Cyanosis Skin: No Nodules or Sclerosis Neurological: - - pleasantly confused Result Diagrams: 04/04/17 06:27 04/04/17 06:27 Assess/Plan/Problems-Billing Ms Rincon is an 86 yo F with h/o A. fib and dementia sent in from assisted living facility with HR of 30 and now is s/p PPM insertion. - Patient Problems (1) UTI (urinary tract infection) Current Visit: Yes Status: Acute Comment: Yesterday the patient was having urinary frequency. Urinalysis shows signs of UTI. Will start ceftriaxone and await final culture data. (2) Mobitz (type) II atrioventricular block Current Visit: Yes Status: Acute Code(s): I44.1 - ATRIOVENTRICULAR BLOCK, SECOND DEGREE SNOMED Code(s): 60252938 Comment: The patient is now s/p PPM insertion. Plan is for the patient to go to [facility] tomorrow. (3) Hypothyroidism Current Visit: Yes Status: Acute Code(s): E03.9 - HYPOTHYROIDISM, UNSPECIFIED SNOMED Code(s): 45943259 Comment: Continue current dose of synthroid. (4) Dementia Current Visit: Yes Status: Chronic Code(s): F03.90 - UNSPECIFIED DEMENTIA WITHOUT BEHAVIORAL DISTURBANCE SNOMED Code(s): 40549884 Comment: Continue Namenda and Aricept. Re-orient as needed. (5) HTN (hypertension) Current Visit: Yes Status: Chronic Code(s): I10 - ESSENTIAL (PRIMARY) HYPERTENSION SNOMED Code(s): 04254131 Comment: BP is under good control. Continue HCTZ. (6) DVT prophylaxis Current Visit: Yes Status: Acute Onset Date: 04/02/14 Code(s): [id number] - SNOMED Code(s): 288067064 Comment: SQ heparin and resume coumadin-will ask Dr. Luther when to resume coumadin. (7) DNR (do not resuscitate) Current Visit: Yes Status: Acute Priority: Medium Onset Date: 04/02/14 Status and Disposition: .
[2017-04-05] MEDS: Donepezil TAB* 5 MG PO SCH (20:22)
--- NOTE | 2017-04-05 23:30 | OP ---
C: Dr. García * DATE OF OPERATION: 04/04/17 - ROOM #448 DATE OF : [birth year] SURGEON: Juancarlos Luther MD ANESTHESIA: Local anesthesia with conscious sedation. PRE-OP DIAGNOSIS: Bradycardia. POST-OP DIAGNOSIS: Bradycardia. OPERATIVE PROCEDURE: Single chamber pacemaker implantation. ESTIMATED BLOOD LOSS: Nil. COMPLICATIONS: None. INDICATIONS: The patient is an 86-year-old female with a history of paroxysmal atrial fibrillation who was admitted to the hospital because of fatigue. She was found to have a heart rate of 30 beats per minute. At that time, all of her cardiac medications were stopped. Five days later, she still had heart rate of 30. The patient has severe dementia and is unable to follow any directions. The decision was to place a single chamber pacemaker rather than a dual chamber pacemaker because of increased risk of lead dislodgement. DESCRIPTION OF PROCEDURE: The patient was brought to the operating room in a fasting state. Informed consent had been obtained prior to the procedure. All labs were reviewed. The patient was placed supine on the procedure table. Her left deltopectoral area was cleaned and draped in usual fashion. A 1% lidocaine was used for local anesthesia. The axillary vein was entered by a modified Seldinger technique under ultrasound guidance and a guidewire was placed. A 3 cm incision was made in the pectoral area and blunt dissection was carried down to the pectoral fascia. A pocket was fashioned for the pacemaker. Over the guidewire, a 7-Peruvian sheath introducer was placed through which a right ventricular lead was advanced to the RV apex. The right ventricular lead is a Medtronic model 5076, serial number [id number] and had an R-wave sensitivity of 5.3, impedance 725 ohms, threshold 1.3 volts at 0.5 msec. The ventricular lead was sutured to the pectoral fascia. The pocket was flushed. A generator was attached to the ventricular lead. The generator is a Medtronic model SESR01, serial number [id number]. The device was placed into pocket. The surgical incision was closed in 3 layers. The patient was returned to holding area in stable condition. [id number]/[facility] #: [id number] MTDHipolito
[2017-04-06] MEDS: Heparin VIAL(*) 5000 UNITS/ML VIAL (FIVE THOUSAND) SUBCUT SCH (05:09)
[2017-04-06] MEDS: Levothyroxine TAB* 50 MCG TAB PO SCH (05:10)
[2017-04-06] MEDS: NS 0.9% 1000 ML* 1,000 ML IV SCH (05:14)
[2017-04-06 06:53] LABS: INR 1.1 (0.77-1.02)
[2017-04-06] MEDS: Omeprazole CAP* 20 MG PO SCH (09:09)
[2017-04-06] MEDS: Hydrochlorothiazide TAB* 25 MG PO SCH (09:10)
[2017-04-06] MEDS: Memantine TAB* 10 MG PO SCH (09:10)
[2017-04-06] MEDS: busPIRone TAB* 15 MG PO SCH (09:10)
[2017-04-06] MEDS: Docusate CAP* 100 MG PO SCH (09:10)
[2017-04-06] MEDS: Magnesium Oxide TAB* 400 MG PO SCH (09:10)
[2017-04-06] MEDS: LORazepam TAB(*) 0.5 MG PO PRN (09:12)
--- NOTE | 2017-04-06 11:07 | PN ---
Subjective Date of Service: 04/06/17 Interval History: Pt is feeling well. She denies any pain at this time. She denies SOB. Objective Active Medications: Acetaminophen (Tylenol Tab*) 650 mg PO Q4H PRN PRN Reason: PAIN Last Admin: 04/04/17 21:56 Dose: 650 mg Buspirone HCl (Buspar Tab *) 15 mg PO BID [facility] Last Admin: 04/06/17 09:10 Dose: 15 mg Docusate Sodium (Colace Cap*) 100 mg PO DAILY [facility] Last Admin: 04/06/17 09:10 Dose: 100 mg Donepezil HCl (Aricept Tab*) 10 mg PO BEDTIME [facility] Last Admin: 04/05/17 20:22 Dose: 10 mg Heparin Sodium (Porcine) (Heparin Vial(*)) 5,000 units SUBCUT Q8HR [facility] Last Admin: 04/06/17 05:09 Dose: 5,000 units Hydrochlorothiazide (Hydrodiuril Tab*) 12.5 mg PO DAILY [facility] Last Admin: 04/06/17 09:10 Dose: 12.5 mg Sodium Chloride (Ns 0.9% 1000 Ml*) 1,000 mls @ 75 mls/hr IV PER RATE [facility] Last Admin: 04/06/17 05:14 Dose: 75 mls/hr Ceftriaxone Sodium 1 gm/ (Dextrose) 50 mls @ 200 mls/hr IVPB Q24H [facility] Last Admin: 04/05/17 20:22 Dose: 200 mls/hr Levothyroxine Sodium (Synthroid Tab*) 50 mcg PO DAILY@0600 [facility] Last Admin: 04/06/17 05:10 Dose: 50 mcg Lorazepam (Ativan Tab(*)) 0.5 mg PO Q6H PRN PRN Reason: ANXIETY Last Admin: 04/06/17 09:12 Dose: 0.5 mg Magnesium Hydroxide (Milk Of Magnesia Liq*) 30 ml PO BEDTIME PRN PRN Reason: CONSTIPATION Magnesium Oxide (Magox 400 Tab*) 400 mg PO DAILY [facility] Last Admin: 04/06/17 09:10 Dose: 400 mg Memantine (Namenda Tab*) 10 mg PO DAILY [facility] Last Admin: 04/06/17 09:10 Dose: 10 mg Omeprazole (Prilosec Cap*) 20 mg PO DAILY [facility] Last Admin: 04/06/17 09:09 Dose: 20 mg Pharmacy Profile Note (Coumadin Daily Reminder*) 1 note FOLLOW UP [facility] Last Admin: 04/05/17 17:22 Dose: 1 note Vital Signs - 8 hr 04/06/17 04/06/17 04/06/17 03:31 08:02 09:12 Temperature 98.5 F 98.1 F Pulse Rate 59 60 Respiratory 20 22 22 Rate Blood Pressure 144/54 125/52 (mmHg) O2 Sat by Pulse 96 97 Oximetry Oxygen Devices in Use Now: None Appearance: Elderly female sitting up in chair sleeping, awakens to voice, NAD Eyes: No Scleral Icterus Ears/Nose/Mouth/Throat: Mucous Membranes Moist Respiratory: Symmetrical Chest Expansion and Respiratory Effort, Clear to Auscultation Cardiovascular: RRR, No Edema, - - III/ systolic murmur Abdominal: NL Sounds; No Tenderness; No Distention Extremities: No Clubbing, Cyanosis Skin: No Nodules or Sclerosis Neurological: - - pleasantly confused Result Diagrams: 04/04/17 06:27 04/04/17 06:27 Assess/Plan/Problems-Billing Ms Rincon is an 86 yo F with h/o A. fib and dementia sent in from assisted living facility with HR of 30 and now is s/p PPM insertion. - Patient Problems (1) UTI (urinary tract infection) Current Visit: Yes Status: Acute Comment: Cota sensitive Ecoli. Will change to keflex 500mg BID to complete 7 days of treatment. (2) Mobitz (type) II atrioventricular block Current Visit: Yes Status: Acute Code(s): I44.1 - ATRIOVENTRICULAR BLOCK, SECOND DEGREE SNOMED Code(s): 48724017 Comment: The patient is now s/p PPM insertion. Plan is for the patient to go to [facility] today. Follow up with Dr. Luther in 7-10 days. (3) Hypothyroidism Current Visit: Yes Status: Acute Code(s): E03.9 - HYPOTHYROIDISM, UNSPECIFIED SNOMED Code(s): 69257386 Comment: Continue current dose of synthroid. (4) Dementia Current Visit: Yes Status: Chronic Code(s): F03.90 - UNSPECIFIED DEMENTIA WITHOUT BEHAVIORAL DISTURBANCE SNOMED Code(s): 94910859 Comment: Continue Namenda and Aricept. Re-orient as needed. (5) HTN (hypertension) Current Visit: Yes Status: Chronic Code(s): I10 - ESSENTIAL (PRIMARY) HYPERTENSION SNOMED Code(s): 99915210 Comment: BP is under good control. Continue HCTZ. (6) DVT prophylaxis Current Visit: Yes Status: Acute Onset Date: 04/02/14 Code(s): KXZ2455 - SNOMED Code(s): 682077659 Comment: Resume coumadin. (7) DNR (do not resuscitate) Current Visit: Yes Status: Acute Priority: Medium Onset Date: 04/02/14 Status and Disposition: d/c to [facility]
[2017-04-06 11:43] VITALS: BP 129/56
[2017-04-06] MEDS ORDERED: Cephalexin CAP* 500 MG PO SCH (12:00)
--- NOTE | 2017-04-06 12:08 | DS ---
CC: Dr. Rowan; Dr. Luther * DATE OF ADMISSION: 03/30/2017. DATE OF DISCHARGE: 04/06/2017. PRIMARY CARE PHYSICIAN: Dr. Rowan. MARKETING PROJECT COORDINATOR: Dr. Luther. PRINCIPAL DIAGNOSES: 1. Mobitz type 2, status post pacemaker placement. 2. E. coli urinary tract infection. SECONDARY DIAGNOSES: 1. Hypothyroidism. 2. Advanced dementia. 3. Hypertension. 4. Atrial fibrillation. DISCHARGE MEDICATIONS: 1. Milk of Magnesia 30 ml p.o. at bedtime prn constipation. 2. Tylenol 650 mg p.o. q.4 hours prn pain. 3. Coumadin 3 mg p.o. Tuesday, Tuesday, Tuesday, and 4 mg all other days of the week. 4. Ergocalciferol 5,000 units p.o. weekly. 5. Donepezil 10 mg p.o. at bedtime. 6. Potassium Chloride 20 mEq p.o. b.i.d. 7. BuSpar 15 mg p.o. b.i.d. 8. Lactobacillus Acidophilus one tab p.o. b.i.d. 9. Colace 100 mg p.o. daily. 10. Omeprazole 20 mg p.o. daily. 11. Namenda 10 mg p.o. daily. 12. Magnesium Oxide 400 mg p.o. daily. 13. Hydrochlorothiazide 12.5 mg p.o. daily. 14. Levothyroxine 50 mcg p.o. daily. 15. Amiodarone 200 mg p.o. daily. 16. Multivitamin one tab p.o. daily. 17. Keflex 500 mg p.o. twice daily times 9 doses. HOSPITAL COURSE: Ms. Rincon is an 86-year-old female who presented to the emergency room on 03/30/2017 as she reportedly was not feeling well at [place]. The patient herself had no complaints and stated she wanted to go home. The patient, however, was noted to have a heart rate in the 30s. The patient has a history of paroxysmal atrial fibrillation and had been kept in sinus rhythm with Amiodarone, Digoxin and Cardizem. Given the bradycardia, all of these medications were held. The patient was seen in consultation by Dr. Luther on 04/02/2017 at which time the patient had been off her usual regimen of medications and was still bradycardic. The patient's family ultimately decided to have a permanent pacemaker placed. This was performed on 04/04/2017. The patient has been doing well postpacemaker. She does lives in [facility] ordinarily; however, as she will have restrictions to her use of her left arm, it is felt that the patient would be benefited by going to short-term rehab. The patient has been given a bed offer for [facility] and will be discharged there today. The patient will need to follow-up with Dr. Luther in the next seven to ten days. Of note, the day of the pacemaker insertion, the patient began to have urinary frequency. A urinalysis was obtained and has grown E. coli 25 to 50,000 colonies. Given her symptoms, I did decide to go ahead and treat her. The patient was initially started on Ceftriaxone and has received two doses of that. She will continue on Keflex 500 mg p.o. twice daily to complete five more days of therapy. The patient has been taken off her Diltiazem as her blood pressure is now under good control off this medication. Her heart rate has been controlled. If the patient goes back into atrial fibrillation, consideration will need to be made for restarting Diltiazem. FOLLOW-UP CONCERNS: The patient is being discharged to [facility] today, 12/2017. ACTIVITY LEVEL: As tolerated per postpacepage hospital instructions. DIET: Regular. CONDITION ON DISCHARGE: Stable. Thirty-five minutes were spent discharging this patient. [id number]/[facility] #: [id number] [id number]
== END 2017-04-06 13:00 | DRG 243 ==
LOC: ED 11:45 → MEDTELE 14:48 → OBSVTOIN 03-31 11:06 → MEDTELE 03-31 14:57
PROVIDERS: ADMIT Internal Medicine; ATTEND Hospitalist
PROC: 02HK3JZ Insertion of Pacemaker Lead into Right Ventricle, Percutaneous Approach (ICD-10-PCS; 2017-04-04)
PROC: 0JH604Z Insertion of Pacemaker, Single Chamber into Chest Subcutaneous Tissue and Fascia, Open Approach (ICD-10-PCS; principal; 2017-04-04 11:30)
DX: I44.1 Atrioventricular block, second degree (principal); N39.0 Urinary tract infection, site not specified; I27.20 Pulmonary hypertension, unspecified; F03.90 Unspecified dementia, unspecified severity, without behavioral disturbance, psychotic disturbance, mood disturbance, and anxiety; I08.1 Rheumatic disorders of both mitral and tricuspid valves; Z66 Do not resuscitate; I44.7 Left bundle-branch block, unspecified; E03.9 Hypothyroidism, unspecified; B96.20 Unspecified Escherichia coli [E. coli] as the cause of diseases classified elsewhere; I10 Essential (primary) hypertension; I48.0 Paroxysmal atrial fibrillation; G47.33 Obstructive sleep apnea (adult) (pediatric); E66.9 Obesity, unspecified; J45.909 Unspecified asthma, uncomplicated; E78.5 Hyperlipidemia, unspecified; I25.10 Atherosclerotic heart disease of native coronary artery without angina pectoris; E78.00 Pure hypercholesterolemia, unspecified; Z96.651 Presence of right artificial knee joint; R40.2142 Coma scale, eyes open, spontaneous, at arrival to emergency department; R40.2362 Coma scale, best motor response, obeys commands, at arrival to emergency department; R40.2242 Coma scale, best verbal response, confused conversation, at arrival to emergency department; Z88.8 Allergy status to other drugs, medicaments and biological substances; Z88.1 Allergy status to other antibiotic agents; Z88.0 Allergy status to penicillin; Z90.710 Acquired absence of both cervix and uterus; Z91.013 Allergy to seafood; Z91.018 Allergy to other foods; Z68.32 Body mass index [BMI] 32.0-32.9, adult
CPT/HCPCS: 33207; 36415; 71045; 71046; 80048; 80053; 80162; 81003; 81015; 83605; 83735; 84443; 84484; 85025; 85610; 85730; 87077; 87086; 87186; 87641; 93005; 99156; 99157; 99284; A9270-GY; C1786; C1898; J0696; J1644; J2250; J3010; J3370

== ENCOUNTER 2017-09-19 15:26 | Emergency (ER) | payer MEDICARE, BC ==
--- NOTE | 2017-09-19 16:14 | ED ---
Syncope/Near Syncope - HPI Summary HPI Summary: Patient from [facility] with history of dementia complains of witnessednsyncopal episode today with fall at 10 AM while at the [employer] at [facility]. Patient heart rate at scene was between 40 and 60. History of pacemaker. Patient does not remember the event, denies any symptoms, including pain, cough, sore throat, CP, SOB, N/V/D, abdominal pain, change in urine or BM. Son also states he is unaware of any symptoms for patient prior to syncopal episode. Denies history of syncope for patient. Patient's balance screwhead polisher wishes pacemaker to be interrogated. Last interrogation in June 2017. Medical history is A. fib, CHF, hypothyroid, HTN, HDL. No history of cardiac arrest, stents. No history of blood clots, unilateral leg pain, hemoptysis, estrogen supplements. No admission to hospital in the past 3 months. Patient on Coumadin. Patient is listed as DNR, however son who is power of environmental attorney, states DNR was created before pacemaker was placed. Son states patient opted for pacemaker, stating she was not yet ready to go. Son also states he would like all efforts made to keep her alive. - History Of Current Complaint Chief Complaint: EDSyncope Time Seen by Provider: 09/19/17 15:42 Hx Obtained From: Patient, Family/Collection Card Clerk Onset/Duration: Sudden Onset Context: Witnessed Activity At Onset: At Rest Associated Head Trauma: No - Risk Factors Risk Factor(s): Coumadin - Allergies/Home Medications Allergies/Adverse Reactions: Allergies Allergy/AdvReac Type Severity Reaction Status Date / Time chocolate flavor Allergy Unknown Verified 09/19/17 19:39 Reaction Details clarithromycin [From Biaxin] Allergy Unknown Verified 09/19/17 19:39 Reaction Details clindamycin Allergy Unknown Verified 09/19/17 19:41 Reaction Details nabumetone Allergy Unknown Verified 09/19/17 19:41 Reaction Details Penicillins Allergy Unknown Verified 09/19/17 19:41 Reaction Details rofecoxib Allergy Unknown Verified 09/19/17 19:41 Reaction Details shellfish derived Allergy Unknown Verified 09/19/17 19:41 Reaction Details chocolate Allergy Unknown Uncoded 09/19/17 19:39 Reaction Details levaquin Allergy Unknown Uncoded 09/19/17 19:41 Reaction Details Home Medications: Home Medications Acetaminophen [Acetaminophen Extra Strength] 500 mg PO Q8H PRN 09/19/17 [ History Confirmed 09/19/17] Amiodarone TAB* [Cordarone TAB*] 200 mg PO DAILY 09/19/17 [History Confirmed ] Cholecalciferol TAB* [Vitamin D TAB*] 50,000 unit PO MONTHLY 09/19/17 [History Confirmed 09/19/17] Donepezil TAB* [Aricept 5 MG TAB*] 10 mg PO BEDTIME 09/19/17 [History Confirmed 09/19/17] Hydrochlorothiazide TAB* [Hydrodiuril TAB*] 12.5 mg PO DAILY 09/19/17 [History Confirmed 09/19/17] Levothyroxine TAB* [Synthroid TAB*] 50 mcg PO DAILY 09/19/17 [History Confirmed 09/19/17] Magnesium Oxide TAB* [MagOx 400 TAB*] 400 mg PO DAILY 09/19/17 [History Confirmed 09/19/17] Memantine TAB* [Namenda TAB*] 10 mg PO DAILY 09/19/17 [History Confirmed ] Nystatin TOP POWDER* 1 applic TOPICAL BID 09/19/17 [History Confirmed 09/19/17] Warfarin TAB(*) [Coumadin TAB(*)] 4 mg PO DAILY 09/19/17 [History Confirmed ] busPIRone TAB* [Buspar TAB *] 15 mg PO BID 09/19/17 [History Confirmed 09/19/17] PMH/Surg Hx/FS Hx/Imm Hx Endocrine/Hematology History: Reports: Hx Anticoagulant Therapy Denies: Hx Diabetes, Hx Thyroid Disease Cardiovascular History: Reports: Hx Atrial Fibrillation, Hx Congestive Heart Failure, Hx Coronary Artery Disease, Hx Hypercholesterolemia, Hx Hypertension, Other Cardiovascular Problems/Disorders - Hypo magnesemia. hyperlipdemia Denies: Hx Pacemaker/ICD Respiratory History: Reports: Hx Asthma, Hx Chronic Obstructive Pulmonary Disease (COPD), Hx Pneumonia - Community Acquired, Hx Seasonal Allergies, Hx Sleep Apnea, Other Respiratory Problems/Disorders - seasonal allergy History: Reports: Other Problems/Disorders - rectal bleeding Denies: Hx Renal Disease Musculoskeletal History: Reports: Hx Arthritis - OA, Other Musculoskeletal History - morbid obesity Sensory History: Reports: Hx Contacts or Glasses - rarely uses glasses, Hx Macular Degeneration, Hx Hearing Problem Denies: Hx Hearing Aid Opthamlomology History: Reports: Hx Contacts or Glasses - rarely uses glasses, Hx Macular Degeneration Neurological History: Reports: Hx Dementia Denies: Hx Seizures Comment Only: Other Neuro Impairments/Disorders - short term memory loss Psychiatric History: Reports: Hx Anxiety Denies: Hx Substance Abuse - Surgical History Surgery Procedure, Year, and Place: right total knee. hysterectomy Infectious Disease History: No Infectious Disease History: Denies: Hx Hepatitis, Hx Human Immunodeficiency Virus (HIV), History Other Infectious Disease, Traveled Outside the [place] in Last 30 Days - Family History Known Family History: Positive: None Family History: R & n/C. FHx limited due to Level 5 Caveat: Dementia - Social History Alcohol Use: None Hx Substance Use: No Substance Use Type: Reports: None Hx Tobacco Use: No Smoking Status (MU): Never Smoked Tobacco Review of Systems Constitutional: Negative Eyes: Negative ENT: Negative Cardiovascular: Negative Respiratory: Negative Gastrointestinal: Negative Genitourinary: Negative Musculoskeletal: Negative Positive: Syncope Psychological: Normal All Other Systems Reviewed And Are Negative: Yes Physical Exam - Summary Physical Exam Summary: No ecchymosis, swelling, erythema, swelling, tenderness, lacerations or abrasions noted to head, face, lips, tongue, teeth. No tenderness to palpation of neck or back, chest wall, abdomen, hips. Patient flexes and extends all extremities without any indication of pain. Neuro exam normal. Patient answers questions appropriately. No carotid bruits Triage Information Reviewed: Yes Vital Signs On Initial Exam: Initial Vitals Pulse Resp BP Pulse Ox 60 20 157/73 96 09/19/17 15:40 09/19/17 15:40 09/19/17 15:40 09/19/17 15:40 Vital Signs Reviewed: Yes Appearance: Positive: Well-Appearing Skin: Positive: Warm Head/Face: Positive: Normal Head/Face Inspection Eyes: Positive: Normal Neck: Positive: Supple Respiratory/Lung Sounds: Positive: Clear to Auscultation Cardiovascular: Positive: Bradycardia Abdomen Description: Positive: Nontender Musculoskeletal: Positive: Normal Neurological: Positive: Normal Psychiatric: Positive: Normal AVPU Assessment: Alert - Rubens Coma Scale Best Eye Response: 4 - Spontaneous Best Motor Response: 6 - Obeys Commands Best Verbal Response: 5 - Oriented Coma Scale Total: 15 Diagnostics - Vital Signs Vital Signs Temp Pulse Resp BP Pulse Ox 09/19/17 15:43 97.6 F 60 20 157/73 97 09/19/17 15:40 60 20 157/73 96 - Laboratory Result Diagrams: 09/19/17 16:15 09/19/17 16:15 Lab Statement: Any lab studies that have been ordered have been reviewed, and results considered in the medical decision making process. - Radiology cxr Xray Interpretation: No Acute Changes Radiology Interpretation Completed By: Radiologist - CT neck CT Interpretation: No Acute Changes CT Interpretation Completed By: Radiologist chest CT Interpretation: No Acute Changes CT Interpretation Completed By: Radiologist - EKG 1 Cardiac Rate: NL EKG Rhythm: Sinus Rhythm ST Segment: Non-Specific Ectopy: None EKG Interpretation: paced rhythm Course/Dx Course Of Treatment: Patient from [facility] [place] with history of dementia complains of witnessednsyncopal episode today with fall at 10 AM while at the [employer] at [facility]. Patient heart rate at scene was between 40 and 60. History of pacemaker. Patient does not remember the event, denies any symptoms , including pain, cough, sore throat, CP, SOB, N/V/D, abdominal pain, change in urine or BM. Son also states he is unaware of any symptoms for patient prior to syncopal episode. Denies history of syncope for patient. Patient's balance screwhead polisher wishes pacemaker to be interrogated. Last interrogation in June 2017. Medical history is A. fib, CHF, hypothyroid, HTN, HDL. No history of cardiac arrest, stents. No history of blood clots, unilateral leg pain, hemoptysis, estrogen supplements. No admission to hospital in the past 3 months. Patient on Coumadin. Patient is listed as DNR, however son who is power of environmental attorney, states DNR was created before pacemaker was placed. Son states patient opted for pacemaker, stating she was not yet ready to go. Son also states he would like all efforts made to keep her alive. Sample Color Maker asked for interrogation of pacemaker. Pacemaker functioning normally per Zelda Openera on-call. Vital signs within normal limits. Labs unremarkable. CT neck and chest negative. Discussed patient with hospitalist who recommend discharge back to nursing facility and stopping Aricept and Namenda. Family and patient understand and approve of plan. - Diagnoses Provider Diagnoses: Syncope, UTI (urinary tract infection) - Physician Notifications Discussed Care of Patient With: Hudson Rodgers Discharge - Sign-Out/Discharge Documenting (check all that apply): Discharge/Admit/Transfer - Discharge Plan Condition: Stable Disposition: HOME Patient Education Materials: Syncope (ED) Referrals: Mikayla Santiago MD [Primary Care Provider] - Additional Instructions: Please start Macrobid 100 mg by mouth twice a day 7 days. Follow-up with primary care. Return to the ED for any new or worsening symptoms - Billing Disposition and Condition Condition: STABLE Disposition: Home
[2017-09-19 16:22] LABS: ABS Basophils 0.1 10^3/ul (0-0.2); ABS Eosinophils 0.1 10^3/ul (0-0.6); ABS Lymphocytes 2.1 10^3/ul (1.0-4.8); ABS Monocytes 0.6 10^3/ul (0-0.8); ABS Neutrophils 4.2 10^3/ul (1.5-7.7); ABS Nucleated RBC 0 10^3/ul; Eosinophil % 0.7 % (0-6); Hematocrit 38 % (35-47); Hemoglobin 12.4 g/dl (12.0-16.0); Lymphocyte % 29.6 % (25-47); Mean Corpuscular HGB Conc 33 g/dl (31-36); Mean Corpuscular Hemoglobin 29 pg (27-31); Mean Corpuscular Volume 88 fL (80-97); Mean Platelet Volume 8.6 um3 (7.4-10.4); Nucleated Red Blood Cells % 0.1; Platelet Count 160 10^3/ul (150-450); Red Blood Count 4.34 10^6/ul (4.00-5.40); Red Cell Distribution Width 16 % (10.5-15)
[2017-09-19 16:39] LABS: INR 1.78 (0.77-1.02)
--- NOTE | 2017-09-19 16:58 | RAD ---
Indication: Syncope. 2 views of the chest are reviewed. No mediastinal shift is noted. Pacemaker leads are in place. Heart is of normal size and configuration. Lung snell are clear. IMPRESSION: No active cardiopulmonary disease is noted.
[2017-09-19 17:11] LABS: EGFR Non-African American 46.9 (>60)
[2017-09-19] MEDS ORDERED: Iodixanol* (CONTRAST) 320 MG/ML 100 ML SDV IV ONE (17:32)
--- NOTE | 2017-09-19 18:57 | RAD ---
INDICATION: Syncope and elevated d-dimer COMPARISON: None TECHNIQUE: Axial source images were acquired following the administration of a 9 mL Visipaque [address] angiographic technique. Coronal and sagittal reconstructed images were constructed and reviewed. FINDINGS: There there are no filling defects in the pulmonary arteries to indicate acute pulmonary embolic disease. There are no focal infiltrates or effusions. There are no pulmonary parenchymal masses. Intravenously injected contrast is seen refluxing into the IVC and hepatic veins, a secondary sign of right heart insufficiency. A single lead cardiac pacemaker overlying the left upper chest appears to be appropriately position. The heart is normal in size. There is no evidence of pericardial effusion. There is no evidence of aortic aneurysm or dissection. There is no mediastinal, hilar, or axillary lymphadenopathy. There is multilevel loss of intervertebral disc height and vacuum disc phenomenon. Limited views of the upper abdomen show no abnormalities. IMPRESSION: 1. No CT of evidence of pulmonary embolism. 2. Chronic, degenerative and iatrogenic findings as described in the body the report.
--- NOTE | 2017-09-19 19:05 | RAD ---
CPT II: CPT II Codes: 3100F INDICATION: Syncope COMPARISON: None TECHNIQUE: A CT angiogram of the head and neck was performed with 80 cc of Visipaque 320. Contiguous axial sections were obtained from the thoracic inlet through the [place]. Images were reconstructed in the sagittal, coronal planes and in a 3-D volume rendered format. The distal cervical internal carotid artery diameter is used as the denominater for stenosis measurement. CTA NECK: The common and internal carotid arteries are patent without hemodynamically significant stenosis. Right: Below the carotid bifurcation the common carotid artery measures 7 mm in short axis diameter. Above the carotid bifurcation the internal carotid artery ostial measures 7 mm in short axis diameter yielding 0% degree stenosis. There is minimally calcified atherosclerotic calcification at the right carotid bulb. Left: Below the carotid bulb the common carotid artery measures 6 mm in short axis diameter. There is mild calcified atherosclerosis at the left carotid bulb. The left internal carotid artery measures 7 mm in short axis diameter yielding 0% degree stenosis. The vertebral arteries are patent without gross abnormality. CTA of the brain: The internal carotid, anterior and middle cerebral arteries appear are patent without high grade stenosis or occlusion. The vertebral, basilar and posterior cerebral arteries appear patent without high grade stenosis or occlusion. The [place] is complete with bilateral posterior communicating arteries identified. No focal luminal filling defect, aneurysm or vascular malformation is seen. IMPRESSION: 1. Normal CT angiography of the head and neck. 2. There is no significant narrowing of the carotid arteries according to nascet criteria.
[2017-09-19 20:17] LABS: Urine Appearance Clear; Urine Blood Negative (Negative); Urine Color Straw; Urine Ketones Negative (Negative); Urine Protein Negative (Negative); Urine Specific Gravity 1.006 (1.010-1.030); Urine Urobilinogen Negative (Negative)
[2017-09-19] MEDS ORDERED: Nitrofurantoin Macrocrystals* 100 MG CAP PO ONE (20:22)
[2017-09-19 21:04] VITALS: BP 144/81
--- NOTE | 2017-09-20 00:56 | CONS ---
CC: Dr. Rowan; Dr. Christine; Dr. García * HOSPITAL MEDICINE CONSULTATION REPORT: DATE OF CONSULT: 09/19/17 PRIMARY CARE PHYSICIAN: Dr. Rowan. DIRECTOR LEARNING AND DEVELOPMENT: Dr. García. ATTENDING PHYSICIAN: Dr. Christine (dictation provided by Tona Nieves NP). REASON FOR CONSULT: Question regarding need for admission. HISTORY OF PRESENT ILLNESS: Ms. Rincon is an 86-year-old female with advanced dementia; atrial fibrillation with pacemaker, on chronic warfarin therapy, who presents today to the hospital with concern for episode of syncope. Ms. Rincon has advanced dementia and is not aware of person, place, or time, but she does know her name. She is accompanied by her son, who also notes that she has some issues with memory as well that are obviously much more mild. Per the report, the patient was noted to have a syncopal episode while at [facility] today. There has been no other complaint noted by either the staff at [facility] or by the son on the patient's behalf and she offers no complaint today. In the emergency room, the patient had labs, which were remarkable only for a slightly low INR at 1.78 based on her goal INR of 2 to 3. Her troponin was 0.00. BNP was 268. She did have a D- dimer of 541 and for that reason, she did go for a chest thorax CTA under the direction of the ED providers. It was read as follows: "No CT evidence of a pulmonary embolism, chronic degenerative and iatrogenic findings as described in the body of the report." She had a neck CTA, showed normal CT angiography of the head and neck. She had a chest x-ray that showed no acute intracranial abnormality. Urinalysis is pending. In reviewing Ms. Rincon' record, it is noted that she is a DNR/DNI and do not send to the hospital. I did review this with the patient's son and he would be willing to accept some treatments or further workup as needed for her syncope today. PAST MEDICAL HISTORY: 1. Atrial fibrillation with pacemaker, on warfarin therapy. 2. Advanced dementia. 3. Hypothyroidism. 4. Anxiety. MEDICATIONS: 1. Tylenol p.r.n. 2. Amiodarone 200 mg p.o. daily. 3. Buspirone 15 mg p.o. b.i.d. 4. Cholecalciferol 50,000 units p.o. monthly. 5. Donepezil 10 mg p.o. at bedtime. 6. Hydrochlorothiazide 12.5 mg p.o. daily. 7. Levothyroxine 50 mcg p.o. daily. 8. Magnesium oxide 400 mg p.o. daily. 9. Namenda 10 mg p.o. daily. 10. Nystatin powder 1 application topically b.i.d. 11. Warfarin 4 mg p.o. daily. ALLERGIES: To CHOCOLATE FAVOR, CLARITHROMYCIN, CLINDAMYCIN, NABUMETONE, PENICILLINS, ROFECOXIB, SHELLFISH, and LEVAQUIN. FAMILY HISTORY: Reviewed and noncontributory. SOCIAL HISTORY: No report of alcohol, tobacco, or drug use. The patient resides at [facility]. Her son, Jigar, is the healthcare proxy. REVIEW OF SYSTEMS: Did not attempt the review of systems with Ms. Rincon today as her memory is very impaired. PHYSICAL EXAM: Vital Signs: Temperature 97.6, pulse rate 60, respiratory rate 14, O2 saturation 97% on room air, blood pressure 139/75. General: Ms. Rincon is sitting up in the bed. She is in no acute distress. Neuro: She is alert. She is oriented to herself. She is otherwise confused and does not know place or time. She has no recollection of the events from earlier today. She moves all extremities equal. There is no facial asymmetry or focal weakness. Extraocular movements are intact. Heart: S1, S2. No murmur, rub, or gallop, and regular. Lungs are clear to auscultation bilaterally. No accessory muscle use and good aeration. Abdomen is soft and nontender with bowel sounds positive x4. Extremities: No cyanosis or edema. Skin is intact. DIAGNOSTIC STUDIES/LAB DATA: WBC 7.0, hemoglobin 12.4, hematocrit 38, platelet count 160. INR 1.78. Sodium 140, potassium 4.8, chloride 102, serum bicarbonate 31, BUN 19, creatinine 1.10, glucose 97. BNP 268. Trop 0.00. The chest x-ray shows no active cardiopulmonary disease. The chest thorax CTA shows no CT evidence of pulmonary embolism. The neck CTA shows no significant stenosis. The EKG shows a paced rhythm. ASSESSMENT AND PLAN: Ms. Rincon is an 86-year-old female with past medical history of advanced dementia and atrial fibrillation, on amiodarone therapy and warfarin, with a pacemaker, who presents today to the hospital after a syncopal episode as described at [facility]. In the emergency room thus far, the patient has had workup including labs, which showed no electrolyte abnormality or overt evidence of infection. I do note that the urinalysis is pending. Her chest x-ray is normal. She has had an interrogation of her pacemaker, which shows no abnormality or arrhythmia there. She has had a CTA of the chest for pulmonary embolism, which was negative. She also had a neck CTA, which was negative. I think at this time if the patient's urinalysis is negative that she is stable and appropriate for discharge back to [facility] as a thorough workup has been completed here with no causation of the syncope identified. My recommendation would be that the patient discontinue Aricept and Namenda as these medications both have significant side effects and limited- to-no benefit in an 86-year-old patient with advanced dementia and could be a possible cause of her syncope. This has been reviewed with Dr. Christine and he agrees with the discharge plan as outlined above. TIME SPENT: Approximately 60 minutes was spent in discharge of this patient, more than half the time spent with her at the bedside and her son, reviewing the events leading up to and during this time in the emergency room, performing the physical examination, and reviewing the plan of care. TONA NIEVES NP [id number]/[facility] #: [id number] VANNESA
== END 2017-09-19 21:11 | disposition home or self-care (01) ==
LOC: ED 15:26
DX: R55 Syncope and collapse (principal); N39.0 Urinary tract infection, site not specified; F03.90 Unspecified dementia, unspecified severity, without behavioral disturbance, psychotic disturbance, mood disturbance, and anxiety; I48.91 Unspecified atrial fibrillation; I11.0 Hypertensive heart disease with heart failure; I50.9 Heart failure, unspecified; E03.9 Hypothyroidism, unspecified; E78.5 Hyperlipidemia, unspecified; Z66 Do not resuscitate; Z91.81 History of falling; Z95.0 Presence of cardiac pacemaker; Z79.01 Long term (current) use of anticoagulants; Z88.3 Allergy status to other anti-infective agents; Z88.0 Allergy status to penicillin; Z88.8 Allergy status to other drugs, medicaments and biological substances
CPT/HCPCS: 36415; 70498; 71046; 71275; 80053; 81003; 81015; 83605; 83735; 83880; 84443; 84484; 85025; 85379; 85610; 85730; 87086; 93005; 99284; A9270-GY; Q9967